=== PATIENT | male | born 1975 | race Caucasian/White ===

== ENCOUNTER 2017-11-20 02:30 | Emergency (ER) | payer SELFPAY ==
[~2017-11-20] VITALS: Ht 172.7 cm; Wt 118.2 kg
[2017-11-20] MEDS ORDERED: PRAZ1 PO (02:43)
[2017-11-20] MEDS ORDERED: ARIP2 PO (02:43)
[2017-11-20] MEDS ORDERED: ADDE10 PO (02:43)
[2017-11-20] MEDS ORDERED: LAMO100 PO (02:43)
[2017-11-20] MEDS ORDERED: LIB25 PO (02:43)
[2017-11-20 03:15] LABS: BASOPHILS % (AUTO) 0.3 % (0.0-2.0); HEMATOCRIT 40.7 % (41-53); HEMOGLOBIN 14.7 g/dL (13.5-17.5); LYMPHOCYTES % (AUTO) 20.9 % (22.0-44.0); MEAN CORPUSCULAR HEMOGLOBIN 31.8 pg (26.0-34.0); MEAN CORPUSCULAR HGB CONC 36.2 G/dL (31.0-37.0); MEAN CORPUSCULAR VOLUME 88 fL (80-100); MONOCYTES # (AUTO) 0.4 K/uL (0.1-1.0); MONOCYTES % (AUTO) 7.5 % (2.0-9.0); NEUTROPHILS # (AUTO) 3.1 K/uL (1.8-7.7); NEUTROPHILS % (AUTO) 66.3 % (40.0-70.0); PLATELET COUNT (AUTO) 150 K/uL (150-450); RED BLOOD CELL COUNT(AUTO) 4.63 MIL/uL (4.50-5.90); RED CELL DISTRIBUTION WIDTH 13.9 % (11.5-14.5)
[2017-11-20 03:20] LABS: ANION GAP 11 mmol/L (8-16); CALCIUM, TOTAL 9.2 mg/dL (8.8-10.5); CARBON DIOXIDE 25 mmol/L (22-29); CHLORIDE 100 mmol/L (98-107); CREATININE 0.87 mg/dL (0.60-1.30); GLOMERULAR FILTR. RATE CALC > 60 mL/min (>60); GLUCOSE,RANDOM 111 mg/dL (70-110); POTASSIUM 3.7 mmol/L (3.5-5.1); SODIUM SERUM 136 mmol/L (136-145); UREA NITROGEN, BLOOD 9 mg/dL (7-18)
[2017-11-20 03:22] VITALS: BP 145/80
[2017-11-20 03:26] LABS: ALANINE AMINOTRANSFERASE 168 U/L (12-78); ALBUMIN 3.8 g/dL (3.4-5.0); ALKALINE PHOSPHATASE 95 U/L (46-116); ASPARTATE AMINOTRANSFERASE 119 U/L (15-37); BILIRUBIN,TOTAL 0.8 mg/dL (0.1-1.0); TOTAL PROTEIN, SERUM 7.6 g/dL (6.4-8.2)
== END 2017-11-20 04:03 | disposition home or self-care (01) ==
LOC: EMS 02:31
DX: F10.20 Alcohol dependence, uncomplicated (principal); R74.0 Nonspecific elevation of levels of transaminase and lactic acid dehydrogenase [LDH]; Y90.0 Blood alcohol level of less than 20 mg/100 ml
CPT/HCPCS: 36415; 80053; 85025; 99284; G0480

== ENCOUNTER 2017-11-20 10:48 | Inpatient (IN) | payer BC ==
[~2017-11-20] VITALS: Ht 172.7 cm; Wt 100.2 kg
[~2017-11-20 10:48] MED LIST: ADDE10 PO; ARIP2 PO; LAMO100 PO; LIB25 PO; PRAZ1 PO
[2017-11-20] MEDS ORDERED: PROMETHAZINE HCL 25 MG TABLET PO PRN (13:00)
[2017-11-20] MEDS ORDERED: ACETAMINOPHEN 325 MG TABLET PO PRN (13:00)
[2017-11-20] MEDS ORDERED: LOPERAMIDE HCL 2 MG CAPSULE PO PRN (13:00)
[2017-11-20] MEDS ORDERED: ZOLPIDEM TARTRATE 10 MG TABLET PO PRN (13:00)
[2017-11-20] MEDS ORDERED: MAG HYDROX/AL HYDROX/SIMETH ES 30 ML SUSPENSION UDCUP PO PRN (13:00)
[2017-11-20] MEDS ORDERED: HydrOXYzine PAMOATE 50 MG CAPSULE PO PRN (13:00)
[2017-11-20] MEDS ORDERED: CYANOCOBALAMIN 1,000 MCG/ML VIAL IM ONE (13:00)
[2017-11-20] MEDS ORDERED: MAGNESIUM HYDROXIDE SUSPENSION 30 ML UDCUP PO PRN (13:00)
[2017-11-20] MEDS ORDERED: GuaiFENesin/D-METHORPHAN [SUGAR-FREE] 200-20MG/10 ML SYRUP UDCUP PO PRN (13:00)
[2017-11-20] MEDS: DIAZEPAM 5 MG TABLET PO PRN ×4 (15:16→22:51)
[2017-11-20 17:00] VITALS: BP 147/93
[2017-11-20] MEDS: THIAMINE HCL 100 MG TABLET PO SCH (17:26)
[2017-11-20] MEDS: GABAPENTIN 100 MG CAPSULE PO SCH (20:08)
[2017-11-20] MEDS: PRAZOSIN HCL 1 MG CAPSULE PO SCH (20:16)
[2017-11-20 21:03] VITALS: BP 135/78
[2017-11-21] VITALS (9 sets, daily range): BP systolic 124–154; BP diastolic 71–92
[2017-11-21] MEDS: DIAZEPAM 5 MG TABLET PO PRN (05:33)
[2017-11-21 06:53] LABS: BASOPHILS % (AUTO) 0.5 % (0.0-2.0); HEMOGLOBIN 13.7 g/dL (13.5-17.5); LYMPHOCYTES # (AUTO) 0.9 K/uL (1.0-4.8); LYMPHOCYTES % (AUTO) 23.5 % (22.0-44.0); MEAN CORPUSCULAR HGB CONC 36.1 G/dL (31.0-37.0); MEAN CORPUSCULAR VOLUME 89 fL (80-100); MONOCYTES # (AUTO) 0.4 K/uL (0.1-1.0); MONOCYTES % (AUTO) 9.8 % (2.0-9.0); NEUTROPHILS # (AUTO) 2.4 K/uL (1.8-7.7); NEUTROPHILS % (AUTO) 61.2 % (40.0-70.0); PLATELET COUNT (AUTO) 143 K/uL (150-450); RED BLOOD CELL COUNT(AUTO) 4.29 MIL/uL (4.50-5.90); RED CELL DISTRIBUTION WIDTH 13.6 % (11.5-14.5)
[2017-11-21 07:06] LABS: ALANINE AMINOTRANSFERASE 216 U/L (12-78); ALBUMIN 3.5 g/dL (3.4-5.0); ALKALINE PHOSPHATASE 82 U/L (46-116); ANION GAP 8 mmol/L (8-16); ASPARTATE AMINOTRANSFERASE 114 U/L (15-37); BILIRUBIN,TOTAL 0.8 mg/dL (0.1-1.0); CALCIUM, TOTAL 8.6 mg/dL (8.8-10.5); CARBON DIOXIDE 24 mmol/L (22-29); CHLORIDE 102 mmol/L (98-107); CHOL/HDL RATIO 4.2 (4.2-7.3); CHOLESTEROL 191 mg/dL (131-200); CREATININE 0.79 mg/dL (0.60-1.30); FREE T4 (FREE THYROXINE) 1.16 ng/dL (0.76-1.46); GLOMERULAR FILTR. RATE CALC > 60 mL/min (>60); GLUCOSE,RANDOM 105 mg/dL (70-110); HDL CHOLESTEROL 46 mg/dL (40-60); LDL CHOL (CALC.) 105 mg/dL (0-130); POTASSIUM 3.5 mmol/L (3.5-5.1); SODIUM SERUM 134 mmol/L (136-145); THYROID STIMULATING HORMONE 2.24 uIU/mL (0.36-3.74); TRIGLYCERIDES 199 mg/dL (15-150); UREA NITROGEN, BLOOD 9 mg/dL (7-18)
[2017-11-21 07:27] LABS: HEMOGLOBIN A1C 4.8 % (4.5-6.2)
[2017-11-21] MEDS: LamoTRIgine 100 MG TABLET PO SCH (09:00)
[2017-11-21] MEDS: FOLIC ACID 1 MG TABLET PO SCH (10:09)
[2017-11-21] MEDS: RANITIDINE HCL 150 MG TABLET PO SCH (10:09)
[2017-11-21] MEDS: THIAMINE HCL 100 MG TABLET PO SCH ×2 (10:09→16:12)
[2017-11-21] MEDS: GABAPENTIN 100 MG CAPSULE PO SCH ×3 (10:09→16:12)
[2017-11-21] MEDS: NALTREXONE HCL 50 MG TABLET PO SCH (10:09)
[2017-11-21] MEDS: MULTIVITAMINS WITH MINERALS, THERAPEUTIC TABLET PO SCH (10:09)
[2017-11-21] MEDS: ARIPiprazole 2 MG TABLET PO SCH (10:09)
[2017-11-21] MEDS: DIAZEPAM 10 MG TABLET PO SCH ×4 (10:11→21:03)
[2017-11-21] MEDS: QUEtiapine FUMARATE 100 MG TABLET PO PRN (10:48)
[2017-11-21] MEDS ORDERED: CloNIDine HCL 0.1 MG TABLET PO PRN (13:00)
[2017-11-21] MEDS: PRAZOSIN HCL 1 MG CAPSULE PO SCH (21:03)
[2017-11-22] VITALS (9 sets, daily range): BP systolic 129–153; BP diastolic 61–94
[2017-11-22] MEDS: DIAZEPAM 10 MG TABLET PO PRN (01:10)
[2017-11-22] MEDS: QUEtiapine FUMARATE 100 MG TABLET PO PRN ×4 (01:50→18:05)
[2017-11-22] MEDS: RANITIDINE HCL 150 MG TABLET PO SCH (08:06)
[2017-11-22] MEDS: MULTIVITAMINS WITH MINERALS, THERAPEUTIC TABLET PO SCH (08:06)
[2017-11-22] MEDS: LamoTRIgine 100 MG TABLET PO SCH (08:06)
[2017-11-22] MEDS: THIAMINE HCL 100 MG TABLET PO SCH ×2 (08:06→16:09)
[2017-11-22] MEDS: FOLIC ACID 1 MG TABLET PO SCH (08:06)
[2017-11-22] MEDS: NALTREXONE HCL 50 MG TABLET PO SCH (08:06)
[2017-11-22] MEDS: ARIPiprazole 2 MG TABLET PO SCH (08:06)
[2017-11-22] MEDS: DIAZEPAM 10 MG TABLET PO SCH ×4 (08:06→20:36)
[2017-11-22] MEDS: PRAZOSIN HCL 1 MG CAPSULE PO SCH (20:36)
[2017-11-23 01:15] VITALS: BP 120/92
[2017-11-23] MEDS: DIAZEPAM 10 MG TABLET PO PRN (01:17)
[2017-11-23] MEDS: QUEtiapine FUMARATE 100 MG TABLET PO PRN ×4 (02:11→21:08)
[2017-11-23 06:58] VITALS: BP 119/61
[2017-11-23] MEDS ORDERED: DIAZEPAM 5 MG TABLET PO PRN (07:00)
[2017-11-23] MEDS: MULTIVITAMINS WITH MINERALS, THERAPEUTIC TABLET PO SCH (08:29)
[2017-11-23] MEDS: THIAMINE HCL 100 MG TABLET PO SCH ×2 (08:29→16:31)
[2017-11-23] MEDS: DIAZEPAM 5 MG TABLET PO SCH ×4 (08:29→20:20)
[2017-11-23] MEDS: RANITIDINE HCL 150 MG TABLET PO SCH (08:29)
[2017-11-23] MEDS: ARIPiprazole 2 MG TABLET PO SCH (08:30)
[2017-11-23] MEDS: LamoTRIgine 100 MG TABLET PO SCH (08:30)
[2017-11-23] MEDS: FOLIC ACID 1 MG TABLET PO SCH (08:30)
[2017-11-23] MEDS: NALTREXONE HCL 50 MG TABLET PO SCH (08:30)
[2017-11-23 08:47] VITALS: BP 125/80
[2017-11-23] MEDS ORDERED: LOPERAMIDE HCL 2 MG CAPSULE PO PRN (13:00)
[2017-11-23] MEDS ORDERED: ARIP2 PO (15:23)
[2017-11-23] MEDS ORDERED: LAMO100 PO (15:23)
[2017-11-23] MEDS ORDERED: NALT50TA PO (15:23)
[2017-11-23] MEDS ORDERED: PRAZ1 PO (15:23)
[2017-11-23 16:49] VITALS: BP 147/75
[2017-11-23] MEDS: PRAZOSIN HCL 1 MG CAPSULE PO SCH (20:20)
[2017-11-24 03:05] VITALS: BP 121/92
[2017-11-24] MEDS ORDERED: DIAZEPAM 5 MG TABLET PO PRN (07:00)
[2017-11-24 07:29] LABS: ALANINE AMINOTRANSFERASE 248 U/L (12-78); ALBUMIN 4.1 g/dL (3.4-5.0); ALKALINE PHOSPHATASE 90 U/L (46-116); ANION GAP 11 mmol/L (8-16); ASPARTATE AMINOTRANSFERASE 68 U/L (15-37); BILIRUBIN,TOTAL 0.6 mg/dL (0.1-1.0); CALCIUM, TOTAL 9.4 mg/dL (8.8-10.5); CARBON DIOXIDE 26 mmol/L (22-29); CHLORIDE 101 mmol/L (98-107); CREATINE KINASE MB 2.6 ng/mL (0-5); CREATINE KINASE, TOTAL 97 U/L (39-308); CREATININE 0.83 mg/dL (0.60-1.30); GLOMERULAR FILTR. RATE CALC > 60 mL/min (>60); GLUCOSE,RANDOM 99 mg/dL (70-110); POTASSIUM 4.4 mmol/L (3.5-5.1); SODIUM SERUM 138 mmol/L (136-145); TOTAL PROTEIN, SERUM 8.2 g/dL (6.4-8.2); UREA NITROGEN, BLOOD 12 mg/dL (7-18)
[2017-11-24 07:37] LABS: FOLATE SERUM 8.8 ng/mL (5.4-)
[2017-11-24 08:11] VITALS: BP 135/87
[2017-11-24] MEDS: THIAMINE HCL 100 MG TABLET PO SCH (08:15)
[2017-11-24] MEDS: RANITIDINE HCL 150 MG TABLET PO SCH (08:15)
[2017-11-24] MEDS: ARIPiprazole 2 MG TABLET PO SCH (08:16)
[2017-11-24] MEDS: FOLIC ACID 1 MG TABLET PO SCH (08:16)
[2017-11-24] MEDS: MULTIVITAMINS WITH MINERALS, THERAPEUTIC TABLET PO SCH (08:16)
[2017-11-24] MEDS: NALTREXONE HCL 50 MG TABLET PO SCH (08:16)
[2017-11-24] MEDS: QUEtiapine FUMARATE 100 MG TABLET PO PRN (08:17)
[2017-11-24] MEDS: LamoTRIgine 100 MG TABLET PO SCH (08:17)
[2017-11-24] MEDS ORDERED: RANI150T7 PO (09:37)
== END 2017-11-24 11:00 | disposition home or self-care (01) | DRG 885 ==
LOC: EEVIPCON 10:49 → EMS 10:49 → 3EX 17:06
PROVIDERS: ADMIT Psychiatry & Neurology Psychiatry; ATTEND Psychiatry & Neurology Psychiatry
DX: F31.30 Bipolar disorder, current episode depressed, mild or moderate severity, unspecified (principal); D69.6 Thrombocytopenia, unspecified; R45.851 Suicidal ideations; D72.819 Decreased white blood cell count, unspecified; F43.10 Post-traumatic stress disorder, unspecified; F60.3 Borderline personality disorder; I10 Essential (primary) hypertension; F10.20 Alcohol dependence, uncomplicated; Z91.19 Patient's noncompliance with other medical treatment and regimen; Z79.899 Other long term (current) drug therapy; Z81.8 Family history of other mental and behavioral disorders
CPT/HCPCS: 80074; 82306; 82607; 82746; 83036; 83735; 84439; 84443; 86592; 99285; J3420